=== PATIENT | male | born 1950 | race Caucasian/White ===

== ENCOUNTER 2022-05-07 17:18 | Emergency (ER) | payer MEDICARE, SELFPAY ==
[2022-05-07 17:30] VITALS: BP 146/109; PULSE 76; RESP 17; TEMP 37.1; O2SAT 96; BMI 33.3
--- NOTE | 2022-05-07 17:41 | HMH.EDUTC ---
[facility] [place] Disposition Clinical Impression: Low back pain Qualifiers: Chronicity: unspecified Back pain laterality: midline Sciatica presence: without sciatica Qualified Code(s): M54.50 - Low back pain, unspecified Disposition: Home, Self-Care Condition on Discharge: Good Instructions: Methocarbamol, DI for Muscle Spasm Additional Instructions: *Ibuprofen ray 6 hours with meal as needed for pain/inflammation if your doctor has said that you can take it *Remember you had a Toradol shot in the clinic today, which is similar to Motrin *Not additional anti-inflammatory like motrin, aleve, advil with the above amount of ibuprofen. You can still take Tylenol every 4 hours as needed if you need something else for pain *Ice 20 minutes every 2 hours for the first 48 hours after the initial injury followed by moist heat every 20 minutes 3-4 times a day to affected area *Muscle relaxer every12 hours as needed for muscle spasms but remember, it WILL cause drowsiness You cannot take it and drive, operate machinery or care for small children. *Keep this area active, no movement leads to more stiffness, However take it easy and avoid heavy lifting pushing or pulling *Follow up with you family doctor if no improvement for further treatment or if you need something stronger for pain Prescriptions: methocarbamoL [Methocarbamol 500mg Tablet] 500 mg PO BID PRN #20 tab PRN Reason: Muscle Spasm Transmission Status: Received by [facility] #[id number] Referrals: Radhames Cruz [Primary Care Provider] - As needed Time of Disposition: 18:39 Medical Decision Making - [place] Inquiry Pt receiving controlled substance: No R[place]wn was queried for this patient: No Vital Signs: 05/07/22 17:30 05/07/22 18:45 Temperature 98.7 F 98.7 F Temperature Source Oral Pulse Rate 76 Pulse Rate [Right Brachial] 76 Respiratory Rate 17 17 Blood Pressure 146/109 H Blood Pressure [Right Arm] 146/109 H Blood Pressure Mean [Right Arm] 121 Blood Pressure Source [Right Arm] Automatic Cuff Blood Pressure Position [Right Arm] Sitting 02 Sat by Pulse Oximetry 96 Oxygen Delivery Method Room Air - Lab Data Lab results reviewed: Yes: I reviewed the patient's lab results. Lab Results 05/07/22 17:41: Urine Color Yellow, Urine Appearance Clear, Urine pH 6.0, Ur Specific [place] 1.020, Urine Protein Negative, Urine Glucose (UA) Negative, Urine Ketones Negative, Urine Blood 1+, Urine Nitrate Negative, Urine Bilirubin Negative, Urine Urobilinogen 0.2, Ur Leukocyte Esterase Negative Orders (Tests/Meds): ED MEDICATIONS Discontinued Medications Generic Name Dose Route Start Last Admin Trade Name Cassie PRN Reason Stop Dose Admin Ketorolac Tromethamine 30 mg 05/07/22 18:37 05/07/22 18:45 Ketorolac 60mg/2ml Vial IM 05/07/22 18:38 30 mg ONCE ONE Administration - Radiology Data #1 Image(s): L-Spine Image Reviewed: Yes I have reviewed radiologist's interpretation IMPRESSION: Extensive chronic changes but no acute findings in the lumbar spine. Medical Decision Narrative: medication discussed with Pharmacy [facility] [place] HPI - General Stated complaint: back pain Time Seen by Provider: 05/07/22 17:42 Mode of Arrival: Ambulatory Source of Information: Patient Limitations: No Limitations Description of Symptoms (Recalled from Triage Doc. by RN): PATIENT C/O LOWER BACK PAIN SINCE THURSDAY. NO KNOWN INJURY HEENT Symptoms (Recalled from RN notes): No Resp Symptoms (Recalled from RN notes): No Skin Symptoms (Recalled from RN notes): No MS Symptoms (Recalled from RN notes): Yes Functional Status (Recalled from RN notes): WNL - History of Present Illness Provider Complaint: Patient states that he has been having spasms in his lower back since Thursday States that he has had back problems in the past and on Thursday he is unsure what he may have done but his low back felt like he was having muscle spasms States that he has been feeling a
--- NOTE | 2022-05-07 17:42 | XR_ITS ---
PROCEDURE INFORMATION: Exam: XR Lumbosacral Spine Exam date and time: 05/07/2022 5:43 PM Age: 71 years old Clinical indication: Low back pain; Patient HX: Muscle spasms TECHNIQUE: Imaging protocol: Radiologic exam of the lumbosacral spine. Views: 2 or 3 views. COMPARISON: No relevant prior studies available. FINDINGS: Bones/joints: Degenerative changes involving the superior endplate of L5 with extensive areas sclerosis and probable chronic fracture deformity. At L5-S1 there is disc height narrowing, endplate sclerosis and facet joint arthropathy. There is also seen superior endplate irregularity involving L4, L3, L2. No acute fracture. Normal alignment. Soft tissues: Unremarkable. IMPRESSION: Extensive chronic changes but no acute findings in the lumbar spine.
[2022-05-07 17:47] LABS: Apearance,Urine Clear (Clear); Bilirubin,Urine Negative (Negative); Blood, Urine 1+ (Negative); Color,Urine Yellow (Yellow); Glucose,Urine (UA) Negative (Negative); Ketones,Urine Negative (Negative); Protein,Urine Negative (Negative); UTC Leukocyte Esterase,Urine Negative (Negative); UTC Nitrate,Urine Negative (Negative); Urobilinogen,Urine 0.2 EU/dl (0.2)
[2022-05-07 18:45] VITALS: BP 146/109; PULSE 76; RESP 17; TEMP 37.1; O2SAT 96
== END 2022-05-07 19:05 | disposition home or self-care (01) ==
PROVIDERS: Emergency Provider Nurse Practitioner; PCP Family Medicine
DX: M54.50 Low back pain, unspecified (principal)
CPT/HCPCS: 72100; 81003; 96372; 99212; G0463